=== PATIENT | male | born 1980 | race Caucasian/White ===

== ENCOUNTER 2025-01-01 22:47 | Emergency (ER) | payer OTHER ==
[~2025-01-01] VITALS: Ht 167.6 cm; Wt 68.0 kg
[2025-01-01 23:24] VITALS: BP 133/74; TEMP 98; O2SAT 99
[2025-01-01] MEDS ORDERED: TDAP [DIPH/PERTUSSIS/TET] 0.5 ML VIAL IM ONE (23:38)
[2025-01-01] MEDS: TDAP [DIPH/PERTUSSIS/TET] 0.5 ML VIAL IM ONE (23:39)
== END 2025-01-02 00:16 | disposition home or self-care (01) ==
LOC: ER 22:51
DX: S01.81XA Laceration without foreign body of other part of head, initial encounter (principal); Z91.048 Other nonmedicinal substance allergy status; W22.8XXA Striking against or struck by other objects, initial encounter; Y93.89 Activity, other specified; Y92.89 Other specified places as the place of occurrence of the external cause; Y99.8 Other external cause status
CPT/HCPCS: 90715